=== PATIENT | female | born 1945 | race Caucasian/White ===

== ENCOUNTER 2024-02-05 13:31 | Outpatient (AMB) | payer MEDICARE, SELFPAY ==
--- NOTE | 2024-02-05 13:43 | A.SPINEOV_ITS ---
Intake Visit Reasons: Low back pain Intake Note: Ms. Valdez is here today c/o low back pain. Rack Puller Required: No Assessment & Plan Assessment & Plan (1) Status post lumbar spine surgery for decompression of spinal cord: Code(s): Z98.890 - Other specified postprocedural states Category: Medical (2) Lumbar stenosis with neurogenic claudication: Code(s): M48.062 - Spinal stenosis, lumbar region with neurogenic claudication Category: Medical Plan Dear colleague Thank you for referring Terri Valdez to the office today with a chief complaint of back pain and left leg pain. HPI: This 78-year-old female underwent a multilevel lumbar laminectomy in 2008 for neurogenic claudication in [facility]. She responded well to surgery for 11 years. In the last years, especially the last year she developed severe pain radiating down her left leg to the front of her thigh carr into her foot. The pain increases significantly with walking and standing. She can hardly walk or stand for more than 1 minute. The pain is debilitating. She is currently in long term care pharmacist, which is not giving relief. The chiropractor told her to see me for 2nd opinion as her original surgeon in [place] thought there was no freire rgical treatment. The right leg is unaffected. She is also using gabapentin 300 mg for pain control. PMH: RI last February +stand placement. Uncontrolled diabetes with an A1c above 10, hypertension Medications: Brilinta, metoprolol, atorvastatin, aspirin, Jardiance, Lantus, famotidine Allergies: None Social history: . Lives with the . Nonsmoker Physical Exam: Pleasant female. She walks with a Trendelenburg of the left side. Has a well healed incision on the lumbar spine. She is able to reproduce her symptoms after short period of standing in the office. Radiological Studies: MRI done at [facility] on 01/14/2024 show status post L2-L5 laminectomy. More importantly it shows severe degenerative disc disease L4-5 with endplate to the degeneration and Modic changes and severe bilateral L4 foraminal stenosis. Impression/Plan: This 78-year-old female suffering from unilateral neurogenic claudication and back pain caused by severe L4-5 lumbar degenerative disc di sease and associated bilateral L4 foraminal stenosis. The best treatment option would be to perform a minimally invasive lumbar fusion either through the trans Kambin approach or retroperitoneal approach to indirectly decompress the nerve structures and to avoid going through the previous surgical site. My preference would be to transfer him by an approach in this 78-year-old female. The main f ocus should be to reduce the A1c before I can plan her surgery. We also need cardiology clearance. 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 The patient will return to my office to discuss further surgical options when her A1c is to a more manageable level of around 7. Thank you for allowing me to participate in your patients care. total time spent was 50 minutes in counseling ,coordination of plan, personal review of imaging, surgical decision making and subsequent plan Ernie Rosario MD, PhD Spine Fellowship Trained Neurosurgeon Director, [facility] Coding Level of Care Code New Pt Level 4 (77923) Diagnoses Status post lumbar spine surgery for decompression of spinal cord Z98.890 Lumbar stenosis with neurogenic claudication M48.062
== END 2024-02-05 14:22 | disposition home or self-care (01) ==
LOC: HO.HNS 13:42
PROVIDERS: Visit Provider Neurological Surgery
DX: Z98.890 Other specified postprocedural states (principal); M48.062 Spinal stenosis, lumbar region with neurogenic claudication
CPT/HCPCS: 99204

== ENCOUNTER → 2024-02-05 13:42 | Outpatient (BNVA) | payer MEDICARE, SELFPAY | PROVIDERS: Visit Provider Neurological Surgery | DX: M48.062 Spinal stenosis, lumbar region with neurogenic claudication (principal); Z98.890 Other specified postprocedural states | CPT/HCPCS: 99202 ==